=== PATIENT | female | born 1945 | race Caucasian/White ===

== ENCOUNTER 2019-08-22 00:13 | Inpatient (IN) | payer OTHER ==
[~2019-08-22] VITALS: Ht 157.4 cm; Wt 77.3 kg
[2019-08-22] VITALS (26 sets, daily range): BP systolic 76–121; BP diastolic 32–50
--- NOTE | 2019-08-22 00:15 | NUR ---
Pt was placed on a carescape ventilator with trach suction inline and HME. Pt is a 6.0 Shiley. Clean dressing. Pt placed in inital vent settings from EMT of [id number] SpO2 96%
--- NOTE | 2019-08-22 00:20 | NUR ---
Pt has shiley number [address]Pt placed on ac rate of 16,tv of 400 , peep of 5 and fio2 of 40 percent.
--- NOTE | 2019-08-22 00:20 | NUR ---
Pt arrived with trach. kong , left ac midline and peg tube which is clamped.
--- NOTE | 2019-08-22 00:30 | NUR ---
Trace edema noted to b/l legs.
--- NOTE | 2019-08-22 00:35 | NUR ---
in to see pt.Aware of tylenlol given at 2250. Ok to [address] ice packs under pt and recheck temperature later on.
--- NOTE | 2019-08-22 01:00 | NUR ---
Pt turned and ice bags placed at this time.
[2019-08-22 01:09] LABS: HEMATOCRIT 24.8 % (37.0-47.0); MEAN CELL VOLUME 100.8 fl (81.0-99.0); MEAN CORPUSCULAR HGB 31.3 pg (27.0-31.0); MEAN PLATELET VOLUME 10.1 fl (9.6-12.3); PLATELET COUNT AUTOMATED 370 10*3/uL (130-400); RED BLOOD COUNT 2.46 10*6/uL (4.10-5.10); RED CELL DISTRI WIDTH 15.2 % (0-14.5); WHITE BLOOD COUNT 29.1 10*3/uL (4.8-10.8)
--- NOTE | 2019-08-22 01:10 | NUR ---
Pt has [address]Pt placed on vent with settings of ac 16 , peep of 5, brian of 40 and tv of 400 at this time.
[2019-08-22 01:22] LABS: ACT PARTIAL THROMBO TIME 26.1 SECONDS (20.0-32.1); INTERNATIONAL NORM RATIO 1.1 (2.0-3.5)
[2019-08-22 01:27] LABS: ALBUMIN 1.9 gm/dl (3.1-4.5); ALKALINE PHOSPHATASE 70 U/L (45-117); BUN 35 mg/dl (7-24); CHLORIDE 97 mmol/L (98-107); CREATININE 0.68 mg/dL (0.55-1.02); PLATELET SUFFICIENCY NORMAL (NORMAL); POLYCHROMASIA SLIGHT; POTASSIUM 5.8 mmol/L (3.5-5.1); SGOT/AST 26 IU/L (3-35); SGPT/ALT 32 U/L (12-78); SODIUM 136 mmol/L (136-145); TOTAL CELLS COUNTED 100 #CELLS; TOTAL PROTEIN 5.4 gm/dL (6.4-8.2)
[2019-08-22 01:29] LABS: TROPONIN I 0.359 ng/ml (<0.045)
[2019-08-22 01:53] LABS: BILIRUBIN NEGATIVE (NEGATIVE); BLOOD 1+ (NEGATIVE); CLARITY SL CLOUDY (CLEAR); COLOR YELLOW (YELLOW); GLUCOSE NEGATIVE (NEGATIVE); KETONE NEGATIVE (NEGATIVE); SPECIFIC GRAVITY 1.025 (1.005-1.030)
[2019-08-22 01:54] LABS: BACTERIA 1+; EPITHELIAL CELLS TNTC; LEUKO ESTERASE TRACE (NEGATIVE); NITRITE NEGATIVE (NEGATIVE); UROBILINOGEN 0.2 E.U./dl (0.2-1.0)
--- NOTE | 2019-08-22 02:40 | NUR ---
aware of pt with marginal blood pressure at this time.Also aware of louis clek unable to find records on pt at this time.
--- NOTE | 2019-08-22 02:41 | NUR ---
Pt has mutiple wounds noted.Pt has one on right lower leg and left lower leg which had dressings prior to being here.Area is black and pink.Area on left and right buttock at this time with dressings prior.Area is black and dark pink.Area also noted on sacrum with dressing and pink and black.Md aware and photos taken.
--- NOTE | 2019-08-22 03:00 | NUR ---
Anitbiotics not started at this time and waiting on records from [facility].
--- NOTE | 2019-08-22 03:17 | NUR ---
Spoke with .Orders to call Keith Driver at this time.
--- NOTE | 2019-08-22 03:20 | NUR ---
[facility] ([place], [place]) stated pt did not have any antibiotic since 1 pm and stated they would fax over information.They are aware [facility] has no info on this pt.
--- NOTE | 2019-08-22 03:30 | NUR ---
Antibiotcs not started at this time and waiting on records from [facility]. aware of this.
--- NOTE | 2019-08-22 03:45 | NUR ---
RECEIVED PT FROM JOSÉ MIGUEL FINE WHO STATES WAITING TO START ANTIBIOTICS UNTIL "RECORDS RECIEVED FROM FACILITY". CLARIFIED THIS WITH DR SOLORZANO WHO STATES OK TO START ANTIBIOTICS STAT.
--- NOTE | 2019-08-22 03:49 | NUR ---
Transfer of care to Marissa romero.
--- NOTE | 2019-08-22 04:21 | NUR ---
DR SOLORZANO STATES TO GIVE ANTIBIOTICS FIRST AND THEN ADMINISTER BLOOD WHEN ANTIBIOTICS ARE DONE DUE TO PT ONLY HAVING ONE PERIPHERAL LINE.
--- NOTE | 2019-08-22 04:26 | NUR ---
SPOKE WITH SHAHRAM AT [facility] ([facility]) WHO REPORTS SHE DOES NOT HAVE A COPY OF PT DNRCC ORDER AVAILABLE. STATES ORDER IS IN THEIR ELECTRONIC SYSTEM BUT HAS NO COPY OF SIGNED ORDER.
--- NOTE | 2019-08-22 04:30 | NUR ---
DR SOLORZANO TO CANCEL [facility]
--- NOTE | 2019-08-22 04:48 | NUR ---
VERBAL ORDER FROM DR SOLORZANO TO RUN BLOOD AT HIGH RATE IF TOLERATED TO INCREASE BP AND FINISH TO START ANOTHER ANTIBIOTIC D/T LIMITIED PERIPHERAL ACCESS . WILL MONITOR PT CLOSELY THROUGHOUT TRANSFUSION.
--- NOTE | 2019-08-22 04:50 | NUR ---
BLOOD CONSENT NOT SIGNED D/T PT AMS, PT UNABLE TO GIVE CONSENT AT THIS TIME. BLOOD CHECKED WITH JOSÉ MIGUEL JOAQUIN PRIOR TO ADMINISTRATION.
--- NOTE | 2019-08-22 05:00 | NUR ---
PT PLACED ON COOLING MACHINE PER DR ORDER. WILL CONTINUE TO MONITOR.
--- NOTE | 2019-08-22 05:18 | NUR ---
CALLED NURSING INGREDIENT [facility] TO GET ANTIBIOTIC MEROPENOM.
--- NOTE | 2019-08-22 05:30 | NUR ---
PER DR SOLORZANO, ADMINISTER ANTIBIOTICS BEFORE MORE BLOOD.
--- NOTE | 2019-08-22 05:30 | NUR ---
FIRST UNIT BLOOD COMPLETE, PT TOLERATED WELL. WILL CONTINUE TO MONITOR.
--- NOTE | 2019-08-22 05:50 | NUR ---
PT GRAND DAUGHTER AMI WEBB CALLS TO CHECK ON PT. STATES SHE IS MEDICAL POA AND CONFIRMS PT IS DNR-CC. DR SOLORZANO MADE AWARE. STATES PT CAN NOT HAVE IBUPROFEN OR BLOOD THINNERS. WISHES TO BE CONTACTED WITH UPDATES AND NEEDED AT [phone].
--- NOTE | 2019-08-22 06:19 | NUR ---
JOSÉ MIGUEL SEXTON STATES READY FOR PATIENT
--- NOTE | 2019-08-22 06:20 | NUR ---
CALLED [facility] FOR PT TRANSPORT TO FLOOR
[2019-08-22 06:45] LABS: LDH 163 U/L (84-246)
[2019-08-22 06:47] LABS: TROPONIN I 0.358 ng/ml (<0.045)
--- NOTE | 2019-08-22 06:55 | NUR ---
A 74yr old female, admitted to [facility], under the services of MARY ANN Marie DO with a diagnosis of COVID-19 (NOT DETECTED), PNEUMONIA, FEVER, QUADRIPLEGIA. Chief complaint is fever at [facility], where she was admitted yesterday. Patient arrived via stretcher from ER. Monitor applied. Initial assessment completed. Vital signs taken and recorded. See assessment for past medical history, medications and allergies. Patient and/or family oriented to unit. [facility]. SOLA SAUCEDO L
[2019-08-22] MEDS ORDERED: ATORVASTATIN CA40 M1 PEG (08:10)
[2019-08-22] MEDS ORDERED: BASAG SOL SC (08:11)
[2019-08-22] MEDS ORDERED: LAXATIVE SUPPOS10 MG R (08:12)
[2019-08-22] MEDS ORDERED: PERIDEX118 ML PO (08:13)
[2019-08-22] MEDS ORDERED: FLEET ENEMA EX230 M1 R (08:13)
[2019-08-22] MEDS ORDERED: FUROSEMIDE40 MG PEG (08:14)
[2019-08-22] MEDS ORDERED: HEPARIN SO5000 UNIT4 SC (08:15)
[2019-08-22] MEDS ORDERED: Synthroid,Levo25 MCG PEG (08:17)
[2019-08-22] MEDS ORDERED: HUMALOG100 UNIT/1 SC (08:17)
[2019-08-22] MEDS ORDERED: LOMOTIL 2.5-0.1 EACH PEG (08:18)
[2019-08-22] MEDS ORDERED: LORAZEPAM I2 MG/1 ML PEG (08:20)
[2019-08-22] MEDS ORDERED: MELATONIN3 M2 PEG (08:21)
[2019-08-22] MEDS ORDERED: VENTOLIN 02.5 MG/3 M INH (08:23)
[2019-08-22] MEDS ORDERED: MERREM IV1 GM IV (08:23)
[2019-08-22] MEDS ORDERED: MIDODRINE HCL10 MG PEG (08:24)
[2019-08-22] MEDS ORDERED: MILK OF MA400 MG/51 PEG (08:25)
[2019-08-22] MEDS ORDERED: NICODERM CQ1 EAC2 TD (08:26)
[2019-08-22] MEDS ORDERED: NITROGLYCERIN0.4 MG SL (08:27)
[2019-08-22] MEDS ORDERED: ONDANSETRON HYDR4 MG PEG (08:28)
[2019-08-22] MEDS ORDERED: OXYCODONE H5 MG/5 ML PEG (08:29)
[2019-08-22] MEDS ORDERED: PROTONIX40 M2 PEG (08:29)
[2019-08-22] MEDS ORDERED: RANITIDINE PEG (08:30)
[2019-08-22] MEDS ORDERED: TRANSDERM-SCOP1 EAC1 T (08:31)
[2019-08-22] MEDS ORDERED: STRESS B WITH1 EACH PEG (08:32)
[2019-08-22] MEDS ORDERED: SEPTDS PEG (08:33)
[2019-08-22] MEDS ORDERED: VENLAFAXINE75 M1 PEG (08:34)
[2019-08-22] MEDS ORDERED: VITAMIN C500 M7 PEG (08:35)
[2019-08-22 08:38] LABS: ABG BASE EXCESS 6.5 mmol/L (-2.0-2.0); ARTERIAL BLOOD GAS PH 7.43 (7.35-7.45)
--- NOTE | 2019-08-22 08:43 | NUR ---
07:00 PT TRANSPORTED TO 4 NE FROM ER WITHOUT INCICENT. PT BAGGED WITH 100% O2. PT PLACED ON VENT UPON ARRIVAL TO [facility]. VENT CHECKED AND FX'ING. PT SUCTIONED FOR MODERATE WHITE SECRETIONS. BBSs WITH RHONCHI BILATERALLY. CLEARER POST SX. GOOD AERATION. TRACH MIDLINE. TRACH TIES AND TRACH MOLINA CHANGED. EKG AND ABG'S TO FOLLOW. RESPS REGULAR AND UNLABORED.
[2019-08-22] MEDS ORDERED: FIBERSOURCE HN250 M3 PEG (09:10)
[2019-08-22 09:51] LABS: BASO % 0.2 % (0.0-1.0); HEMATOCRIT 22.1 % (37.0-47.0); LYMPH # 2.6 10*3/uL (1.3-4.4); LYMPH % 20.2 % (27.0-41.0); MEAN CELL VOLUME 99.1 fl (81.0-99.0); MEAN CORPUSCULAR HGB 30.9 pg (27.0-31.0); MEAN CORPUSCULAR HGB CONC 31.2 g/dl (33.0-37.0); MEAN PLATELET VOLUME 10.7 fl (9.6-12.3); MONO % 7.4 % (3.0-9.0); NEUT # 9.2 10*3/uL (2.3-7.9); RED BLOOD COUNT 2.23 10*6/uL (4.10-5.10); RED CELL DISTRI WIDTH 15.9 % (0-14.5)
--- NOTE | 2019-08-22 09:59 | NUR ---
DR QUIGLEY NOTIFIED OF NEED FOR WOUND CARE ORDERS.
[2019-08-22 10:01] LABS: CHLORIDE 102 mmol/L (98-107); CREATININE 0.68 mg/dL (0.55-1.02); SODIUM 137 mmol/L (136-145)
[2019-08-22 10:03] LABS: BUN 67 mg/dl (7-24)
--- NOTE | 2019-08-22 10:08 | NUR ---
DR ORNELAS NOTIFIED OF CONSULTATION. NO NEW ORDERS.
--- NOTE | 2019-08-22 10:10 | NUR ---
[facility]SWER[facility] NOTIFIED OF CONSULTATION.
--- NOTE | 2019-08-22 10:15 | NUR ---
DR QUIGLEY NOTIFIED OF CRITICAL VALUE TROPONIN 0.321 WHICH IS LOWER THAN THE LAST VALUE.
[2019-08-22 10:16] LABS: PLATELET COUNT AUTOMATED 258 10*3/uL (130-400)
[2019-08-22 10:22] LABS: BASOPHILS 1 % (0-1); PLATELET SUFFICIENCY NORMAL (NORMAL); TOTAL CELLS COUNTED 100 #CELLS
--- NOTE | 2019-08-22 10:25 | NUR ---
DR QUIGLEY NOTIFIED OF CRITICAL HGB 6.9.
--- NOTE | 2019-08-22 11:00 | NUR ---
DR COSBY STAGED WOUNDS.
--- NOTE | 2019-08-22 12:36 | NUR ---
PHONE CONSENT FROM PT'S GRANDDAUGHTER FOR TRANSFUSION OF PACKED CELLS.
--- NOTE | 2019-08-22 12:55 | NUR ---
Phone consent for blood transfusion had been obtained earlier from patient's grand-daughter Dimas. Patient had a unit of blood transfused in ER overnight but I did not locate a consent in her chart anywhere. Patient identified by arm band. Vital signs recorded. Blood unit number [id number] verified by 2 R.N.'s, myself and Daniela Schumacher. I.V. site satisfactory. Unit #2 started at a KVO rate with Normal Saline. SOLA SAUCEDO L
--- NOTE | 2019-08-22 13:02 | NUR ---
Spoke with Omkar Abdullahi in lab, states he is unable to get a hold of the nurses on 4NE and needs to rely a critical for this pt. States these time sensitive and he needs to make someone aware. States troponin is 0.325. I attempted to call staff on 4ne and spoke with najma olson who states there aren't any nurses in site and they must be in pt room. I notified Julia Alex nursing home energy consultant supervisor of critical result and she states that troponin was higher prior to this draw and to notify RN on 4ne when they are available.
--- NOTE | 2019-08-22 13:09 | NUR ---
DR. QUIGLEY NOTIFIED OF TROPONIN RESULT.
--- NOTE | 2019-08-22 13:37 | NUR ---
AT NOON PT HAD BEEN INCONTINENT OF LARGE AMOUNT SEMI FORMED MUSHY LIGHT BROWN BM. AFTER TRANSFUSION INITIATED, I CHECKED TO SEE IF SHE HAD GONE ANYMORE AND FOUND A LARGE DRK PURPLE/RED MELANOTIC STOOL. COMPLETE BED CHANGE AND SIDRA CARE DONE. DR COSBY NOTIFIED OF THIS FINDING. PATIENT WAS IN CONSTANT ATTENDANCE FOR FIRST 20ML OF TRANSFUSION WITH NO APPARENT REACTION AND THE INFUSION RATE WAS INCREASED TO 200/HR. PATIENT DID MOUTH THE WORD "NO" WHEN ASKED IF HER PILLOW COMFORTABLE AND "YES" WHEN OFFERED A SOFTER PILLOW.
--- NOTE | 2019-08-22 13:48 | NUR ---
DR COSBY AND DR QUIGLEY HAVE DISCUSSED CONDITION VIA PHONE WITH FAMILY. DR QUIGLEY CALLED AND SAID THEY WILL BE ENTERING ORDERS FOR HOSPICE ON THIS PT. TRANSFUSION CONTINUES WITHOUT SIGNS OF REACTION.
--- NOTE | 2019-08-22 14:01 | NUR ---
[facility] CALLED TO ASK IF THEY COULD CONSULT ON PATIENT. THE SAS ANALYST THERE TALKING VIA PHONE WITH DR OCSBY.
--- NOTE | 2019-08-22 14:15 | NUR ---
[facility] UNABLE TO CONSULT ON A PATIENT ON VENTILATOR, UNLESS A TERMINAL WEAN HAS ALREADY BEEN PLANNED/HAS OCCURRED AND PT STILL BREATHING. DR COSBY SAYS TO MAINTAIN DNR COMFORT CARE STATUS AND KEEP PT COMFORTABLE. HE WILL DISCUSS WITH FAMILY.
--- NOTE | 2019-08-22 15:50 | NUR ---
DR ORNELAS HAS VISITED. TRANSFUSION CONTINUES. PT ABLE TO MOUTH YES AND NO THAT SHE'S WARM ENOUGH, NOT HAVING ANY PAIN AND DIDN'T WANT THE TV ON.
--- NOTE | 2019-08-22 15:53 | NUR ---
PT'S SON CALLED IN, MADE AWARE OF LOWER GI BLEED, BLOOD TRANSFUSION.
--- NOTE | 2019-08-22 16:10 | NUR ---
TRANSFUSION COMPLETE AT 1610 WITHOUT REACTION.
--- NOTE | 2019-08-22 18:15 | NUR ---
I PHONED DR QUIGLEY TO ASK WHEN HE WANTED ANOTHER CBC AFTER THE TRANSFUSION. ORDER RECEIVED FOR 3 HOURS POST TRANSFUSION.
--- NOTE | 2019-08-22 18:56 | NUR ---
RESTING QUIETLY AT THIS TIME. NO DYSRHYTHMIAS.
--- NOTE | 2019-08-22 20:14 | NUR ---
PATIENT IS AWAKE AND ALERT, MOUTHING WORDS AND RESPONDS TO YES/NO QUESTIONS WITH HEAD NODS. ASSESSMENT IS COMPLETE WITH NO S/S OF DISTRESS NOTED AT THIS TIME. BED IS LOW, LOCKED, ALARMED, AND CALL LIGHT IS WITHIN REACH. SEE INTERVENTIONS.
[2019-08-22 20:21] LABS: BASO % 0.1 % (0.0-1.0); NEUT % 68.8 % (47.0-73.0)
[2019-08-22 20:32] LABS: HEMATOCRIT 22.3 % (37.0-47.0); LYMPH % 21.9 % (27.0-41.0); MEAN CELL VOLUME 92.5 fl (81.0-99.0); MEAN CORPUSCULAR HGB 30.7 pg (27.0-31.0); MEAN CORPUSCULAR HGB CONC 33.2 g/dl (33.0-37.0); MEAN PLATELET VOLUME 10.6 fl (9.6-12.3); MONO # 1.1 10*3/uL (0.1-1.0); MONO % 7.8 % (3.0-9.0); NEUT # 9.5 10*3/uL (2.3-7.9); PLATELET COUNT AUTOMATED 280 10*3/uL (130-400); RED BLOOD COUNT 2.41 10*6/uL (4.10-5.10); RED CELL DISTRI WIDTH 16.1 % (0-14.5); WHITE BLOOD COUNT 13.8 10*3/uL (4.8-10.8)
--- NOTE | 2019-08-22 21:52 | NUR ---
CALLED [facility] WITH HEMOGLOBIN OF 7.4 NO NEW ORDERS WILL RECHECK IN THE MORNING
[2019-08-23] VITALS (12 sets, daily range): BP systolic 95–119; BP diastolic 35–46
--- NOTE | 2019-08-23 01:54 | NUR ---
PATIENT REFUSING TO TURN AT THIS TIME.
--- NOTE | 2019-08-23 01:59 | NUR ---
CHART CHECK COMPLETE.
--- NOTE | 2019-08-23 04:54 | NUR ---
PRN OXY AND ATIVAN GIVEN FOR INCREASED AGITATION, PATIENT VERY TEARFUL, MOUTHING WORDS. INCONTINENCE CARE PROVIDED FOR LARGE LOOSE BLACK BM. BED IS LOW, LOCKED, AND CALL LIGHT IS WITHIN REACH.
[2019-08-23 05:04] LABS: BASO % 0.2 % (0.0-1.0); EOS % 0.1 % (1.0-4.0); HEMATOCRIT 22.3 % (37.0-47.0); LYMPH # 2.6 10*3/uL (1.3-4.4); LYMPH % 20.1 % (27.0-41.0); MEAN CELL VOLUME 93.7 fl (81.0-99.0); MEAN CORPUSCULAR HGB 31.1 pg (27.0-31.0); MEAN CORPUSCULAR HGB CONC 33.2 g/dl (33.0-37.0); MEAN PLATELET VOLUME 10.6 fl (9.6-12.3); MONO % 7.5 % (3.0-9.0); NEUT # 9.3 10*3/uL (2.3-7.9); NEUT % 70.8 % (47.0-73.0); PLATELET COUNT AUTOMATED 280 10*3/uL (130-400); RED BLOOD COUNT 2.38 10*6/uL (4.10-5.10); RED CELL DISTRI WIDTH 16.6 % (0-14.5); WHITE BLOOD COUNT 13.1 10*3/uL (4.8-10.8)
[2019-08-23 05:19] LABS: ALBUMIN 1.9 gm/dl (3.1-4.5); CHLORIDE 104 mmol/L (98-107); CPK 59 U/L (26-192); CREATININE 0.68 mg/dL (0.55-1.02); POTASSIUM 4.3 mmol/L (3.5-5.1); SGOT/AST 13 IU/L (3-35); SGPT/ALT 27 U/L (12-78); SODIUM 138 mmol/L (136-145); TOTAL PROTEIN 4.9 gm/dL (6.4-8.2)
[2019-08-23 05:25] LABS: BUN 81 mg/dl (7-24)
[2019-08-23 05:46] LABS: ALKALINE PHOSPHATASE 17 U/L (45-117)
--- NOTE | 2019-08-23 05:54 | NUR ---
GLUCOSE 342 ACCORDING TO AM LABS.
--- NOTE | 2019-08-23 07:05 | NUR ---
Shift chart check completed.24 HR chart check completed.
--- NOTE | 2019-08-23 07:25 | NUR ---
DR QUIGLEY NOTIFIED OF LACTIC ACID BASELINE OF 2.3.
[2019-08-23 07:43] LABS: ABG BASE EXCESS 2.6 mmol/L (-2.0-2.0); ARTERIAL BLOOD GAS PH 7.421 (7.35-7.45)
--- NOTE | 2019-08-23 09:00 | NUR ---
DURING BATH FOUND A CLEAR TEGADERM OVER THE RIGHT ELBOW THAT I DID NOT SEE YESTERDAY, NEAR THE BP CUFF. WILL ASK THE NIGHT NURSE WHEN SHE IS BACK TONIGHT TO SEE IF SHE PLACED IT THERE OR IF I MISSED IT YESTERDAY.
--- NOTE | 2019-08-23 09:02 | NUR ---
ON ASSESSMENT PATIENT IS ALERT, MOUTHED "GOOD MORNING" IN RESPONSE TO ME. REMAINS VENTED, VIA TRACH. INCONTINENT MODERATE AMT DRK BROWN/BLACK BM. COMPLETE AM CARE DONE WITH RANGE OF MOTION. ANASARCA CONTINUES. TUBI DISPLAYER APPLIED TO BILATERAL LOWER LEGS WITH HEEL RAISER PREVALON BOOTS. PEG INTACT WITH JEVITY 1.2 AT 50/HR WITH NO RESIDUAL. SEE ALL APPROPRIATE INTERVENTIONS.
--- NOTE | 2019-08-23 09:49 | NUR ---
DR QUIGLEY NOTIFIED OF REFLEX LACTIC ACID OF 2.1, LOWER THAN THE LAST VALUE.
--- NOTE | 2019-08-23 12:36 | NUR ---
DR ORNELAS AND ALEA HAVE VISITED. REVIEW OF LABS/ORDERS. ORDERS RECEIVED.
[2019-08-23 14:05] LABS: HEP B CORE AB, IGM Negative (Negative); HEPATITIS B SURFACE AG Negative (Negative); HEPATITIS C AB 0.2 (0.0-0.9); HEPATITIS C VIRUS ANTIBODY 0.2 s/co (0.0-0.9)
--- NOTE | 2019-08-23 14:22 | NUR ---
STAT PORTABLE CXR HAS BEEN DONE.ALBUMIN AND LASIX PER ORDER. BSBS 265 AT 1411, INSULIN DRIP STARTED AT 3 UNITS/HR. INCONTINENT SMALL DARK TARRY STOOL. PT GRIMACING AND TEARFUL. DENIES PAIN. MOUTH "YES" WHEN I ASKED IF SHE WAS SCARED. WILL ADMINISTER PRN DOSE OF ATIVAN.
--- NOTE | 2019-08-23 14:27 | NUR ---
ATIVAN VIA PEG FOR ANXIETY.
--- NOTE | 2019-08-23 15:26 | NUR ---
PT RESTING WITH HER EYES CLOSED, FACE RELAXED SINCE EARLIER ATIVAN.
--- NOTE | 2019-08-23 16:06 | NUR ---
INSULIN DRIP TITRATED TO 4 UNITS/HR FOR BSBS 276.
--- NOTE | 2019-08-23 16:38 | NUR ---
DR ORNELAS CALLED IN, HE'S REVIEWED CXR,AND LABS. ORDERS RECEIVED.
--- NOTE | 2019-08-23 17:12 | NUR ---
INSULIN DRIP INCREASED TO 5 UNITS/HR FOR BSBS OF 243. PT HAS HAD SMALL TARRY BM'S WITH EVERY POSITION CHANGE.
--- NOTE | 2019-08-23 18:02 | NUR ---
INSULIN DRIP INCREASED TO 6UNITS/HR FOR BSBS OF 244.
[2019-08-23 18:22] LABS: BUN 73 mg/dl (7-24); CHLORIDE 106 mmol/L (98-107); CREATININE 0.64 mg/dL (0.55-1.02); POTASSIUM 3.9 mmol/L (3.5-5.1); SODIUM 140 mmol/L (136-145)
--- NOTE | 2019-08-23 19:01 | NUR ---
DR ORNELAS NOTIFIED OF 6PM BMP. ORDERS RECEIVED.
--- NOTE | 2019-08-23 19:09 | NUR ---
INSULIN DRIP TO 7UNITS/HR FOR BSBS OF 245. TRANSFUSION CONTINUES WITHOUT SIGNS OF REACTION.
--- NOTE | 2019-08-23 19:29 | NUR ---
NIGHT NURSE DID NOT PLACE OPSITE ON RT ELBOW LAST NIGHT. PHOTO AND MEASUREMENTS TAKEN.
--- NOTE | 2019-08-23 19:30 | NUR ---
DR ROBERTSON NOTIFIED OF SKIN ISSUE OF RT ELBOW AND ORDERS RECEIVED.
--- NOTE | 2019-08-23 20:00 | NUR ---
PT RESTING IN BED AWAKE & ALERT. TRACH PATENT, TIES SECURE, VENT SETTINGS VERIFIED AND FUNCTIONING WITHOUT DIFFICULTY. PEG TUBE PATENT, PLACEMENT VERIFIED VIA AIR BOLUS, TF PEDRO WELL. LEFT MIDLINE AND RIGHT ACCUCATH PATENT, DRESSINGS DRY AND INTACT. IVF'S INFUSING ORDERED WITHOUT DIFFICULTY. MCKENNA PATENT FOR CLEAR STRAW URINE. NO ACUTE DISTRESS OR DISCOMFORT NOTED. NO S/S OF HYPO/HYPERGLYCEMIA NOTED.
--- NOTE | 2019-08-23 20:30 | NUR ---
BLOOD INFUSION DONEL. UNABLE TO CHART I&O'S FOR BLOOD IN BLOOD TAR.
--- NOTE | 2019-08-23 21:04 | NUR ---
MEDICATED WITH ATIVAN AND OXYCODONE PER PRN ORDERS FOR ANXIETY AND PAIN.
--- NOTE | 2019-08-23 21:30 | NUR ---
ATIVAN AND OXYCODONE EFFECTIVE.
[2019-08-24] VITALS: BP 129/39
[2019-08-24 04:00] VITALS: BP 113/39
--- NOTE | 2019-08-24 04:26 | NUR ---
MEDICATED WITH ATIVAN AND ONYCODONE PER PRN ORDERS FOR PAIN AND ANXIETY.
[2019-08-24 06:32] LABS: BASO % 0.2 % (0.0-1.0); EOS # 0.1 10*3/uL (0.0-0.4); EOS % 0.8 % (1.0-4.0); HEMATOCRIT 23.2 % (37.0-47.0); LYMPH # 2.9 10*3/uL (1.3-4.4); LYMPH % 18.4 % (27.0-41.0); MEAN CELL VOLUME 93.2 fl (81.0-99.0); MEAN CORPUSCULAR HGB 29.7 pg (27.0-31.0); MEAN CORPUSCULAR HGB CONC 31.9 g/dl (33.0-37.0); MEAN PLATELET VOLUME 10.8 fl (9.6-12.3); MONO % 6.2 % (3.0-9.0); NEUT # 11.4 10*3/uL (2.3-7.9); NEUT % 72.6 % (47.0-73.0); PLATELET COUNT AUTOMATED 244 10*3/uL (130-400); RED BLOOD COUNT 2.49 10*6/uL (4.10-5.10); RED CELL DISTRI WIDTH 18.3 % (0-14.5); WHITE BLOOD COUNT 15.8 10*3/uL (4.8-10.8)
[2019-08-24 07:04] LABS: ALBUMIN 2.3 gm/dl (3.1-4.5); CHLORIDE 107 mmol/L (98-107); CREATININE 0.52 mg/dL (0.55-1.02); POTASSIUM 3.9 mmol/L (3.5-5.1); SGOT/AST 27 IU/L (3-35); SGPT/ALT 38 U/L (12-78); SODIUM 142 mmol/L (136-145)
[2019-08-24 07:13] LABS: ALKALINE PHOSPHATASE 51 U/L (45-117)
[2019-08-24 07:15] LABS: BUN 63 mg/dl (7-24)
[2019-08-24 08:00] VITALS: BP 113/57
[2019-08-24 08:29] LABS: ABG BASE EXCESS 5.1 mmol/L (-2.0-2.0); ARTERIAL BLOOD GAS PH 7.38 (7.35-7.45)
--- NOTE | 2019-08-24 09:00 | NUR ---
AM ASSESSMENT DONE - PT ALERT & SPEAKS TO NURSES..PT MOVES HEAD BUT UNABLE TO MOVE ANY OTHER EXTREMITY. TRACH SECURE & SUCTIONED BY RESP THERAPY FOR SM THICK YELLOW..DIM BILAT.. LEFT MIDLINE PATENT & FLUSHED. RT ACCUCATH PATENT W/ INSULIN DRIP INFUSING & DECREASED TO 4 UNITS/HR.. PEG TUBE SECURE WITH JEVITY INFUSING..MCKENNA PATENT FOR STRAW URINE..AFEBRILE VIA RECTAL PROBE. TARRY BLACK STOOL...DRESSING TO COCCYX & RT ELBOW CHANGED. GEN 3RD SPACING EDEMA TO ALL EXTREMITIES..
[2019-08-24 10:57] LABS: ABG BASE EXCESS 5.4 mmol/L (-2.0-2.0); ARTERIAL BLOOD GAS PH 7.404 (7.35-7.45)
[2019-08-24 12:00] VITALS: BP 109/46
--- NOTE | 2019-08-24 14:05 | NUR ---
REPOSITIONED - ANASARCA ALL EXTREMITIES & ABDOMEN. SCD, TUBIGRIPS & HEEL RAISERS REMAIN IN USE. ALBUMIN & LASIX GIVEN PER ORDERS..INSULIN DRIP STOPPED PER ORDERS AND LONG ACTING INSULIN STARTED
--- NOTE | 2019-08-24 14:43 | NUR ---
TRANSFERRED TO ICU 3 VIA BED
--- NOTE | 2019-08-24 14:59 | NUR ---
MOVED TO ICU WITH REPORT..
--- NOTE | 2019-08-24 15:04 | NUR ---
AMI WEBB AWARE OF TRANSFER TO ICU 3
--- NOTE | 2019-08-24 15:45 | NUR ---
RESTING IN BED. MOUTHS "NO" WHEN ASKED TO TURN PATIENT. #6 SHILEY TRACH INTACT AND SUCTIONED FOR SCANT CLEAR SECRETIONS. PEG TUBE INTACT AND JEVITY INFUSING AT 60CC/HR. SCD'S AND PRAFO BOOTS INTACT TO BILATERAL LOWER LEGS. MCKENNA INTACT AND DRAINING CLEAR YELLOW URINE. ORAL CARE PROVIDED.
[2019-08-24 16:00] VITALS: BP 119/34
--- NOTE | 2019-08-24 18:32 | NUR ---
MEDICATED WITH ATIVAN VIA PEG TUBE FOR COMPLAINTS OF ANXIETY. LIPS "I CANNOT BREATHE." WHEN ASKED IF VITA IS NERVOUS, SHE NODS YES." PULSE OX 97% ON VENT
[2019-08-24 20:00] VITALS: BP 127/35
--- NOTE | 2019-08-24 21:15 | NUR ---
PT. RESTING IN BED. STATES "HELP ME" "I CANT BREATH", REASSURED PATIENT PULSE OX 96% ON 30% FIO2. ORAL MOUTH CARE GIVEN AND PT. SUCTIONED VIA TRACH AND ORALLY FOR MODERATE AMT OF YELLOW/WHITE AND ORAL SECRETIONS RESPECTIVELY. JEVITY TUBE FEEDING VIA PEG CONTINUES ORDERED, NO RESIDUAL NOTED. LUNGS DIMINISHED BILAT. ABDOMEN SOFT ,NONDISTENDED AND NORMO. DEPENDENT EDEMA OF HANDS/FEET AND GENERALIZED ANASARCA NOTED. BOOTS AND SCD'S ON BILAT. MCKENNA CATHETER DRAINING A MODERATE AMT OF CLEAR YELLOW URINE DUE TO LASIX/ALBUMIN. MIDLINE AND ACCUCATH'S INTACT IN BILAT ARMS. RESP EASY AND REG NO DISTRESS. PT. ANXIOUS AT TIMES. MEDICATED PRIOR TO SHIFT WITH ATIVAN ORDERED. DEMETRIA SIMMONS RN
[2019-08-25] VITALS: BP 142/38
--- NOTE | 2019-08-25 01:12 | NUR ---
ATIVAN GIVEN AT 0020 FOR ANXIETY PT. KEPT STATING "HELP ME" AND "i CANT BREATH". CURRENTLY SLEEPING, ATIVAN EFFECTIVE.
--- NOTE | 2019-08-25 03:34 | NUR ---
PT. GIVEN TYLENOL SUPP FOR TEMP OF 101.3 ORDERED. DEMETRIA SIMMONSRN
[2019-08-25 04:00] VITALS: BP 152/52
--- NOTE | 2019-08-25 04:41 | NUR ---
REPEAT TEMP 100.7, TYLENOL EFFECTIVE.
[2019-08-25 04:53] LABS: HEMATOCRIT 23.7 % (37.0-47.0); MEAN CELL VOLUME 94.4 fl (81.0-99.0); MEAN CORPUSCULAR HGB 30.3 pg (27.0-31.0); MEAN CORPUSCULAR HGB CONC 32.1 g/dl (33.0-37.0); MEAN PLATELET VOLUME 10.9 fl (9.6-12.3); NUCLEATED RED BLOOD CELL 0.1 10*3/uL (0.0-0.0); NUCLEATED RED BLOOD CELL 0.4 % (0.0-0.0); PLATELET COUNT AUTOMATED 296 10*3/uL (130-400); RED BLOOD COUNT 2.51 10*6/uL (4.10-5.10); RED CELL DISTRI WIDTH 17.6 % (0-14.5)
[2019-08-25 05:22] LABS: ALKALINE PHOSPHATASE 92 U/L (45-117); CHLORIDE 104 mmol/L (98-107); CREATININE 0.53 mg/dL (0.55-1.02); POTASSIUM 4.3 mmol/L (3.5-5.1); SGOT/AST 41 IU/L (3-35); SGPT/ALT 53 U/L (12-78); SODIUM 140 mmol/L (136-145); TOTAL PROTEIN 5.7 gm/dL (6.4-8.2)
[2019-08-25 05:24] LABS: PLATELET SUFFICIENCY NORMAL (NORMAL); TOTAL CELLS COUNTED 100 #CELLS
[2019-08-25 05:25] LABS: BURR CELLS FEW; OVALOCYTES FEW
[2019-08-25 05:45] LABS: BUN 46 mg/dl (7-24)
--- NOTE | 2019-08-25 07:36 | NUR ---
IOANA WEBB [id number] Please refer to the physician's history and physical for past medical history, comorbid conditions, and allergies. Diagnosis: COVID-19 VIRUS NOT DETECTED FEVER QUADRIPLEGIA Greg Score: 10,HIGH RISK WOUND DESCRIPTIONS: This nurse was assessed with Alecia Vogel RN. Wound Number: 1 Location of the wound: left buttock Type of Wound: Unstageable Thickness: Full Size: 3.0cm x 3.3cm x 0.1cm Tunneling: none Undermining: none Sinus Tract: none Presence of Exudate: Serousanguineous Amount: Light Color: Red, yellow, black Odor: None Periwound Skin Appearance: Normal Wound edges: approximated Pain (associated with wound): none at time of assessment How does patient state this happened? pt unable to state how this happened Wound Number: 2 Location of the wound: left lower leg Thickness: Full Size: 6.7cm x 1.4cm x 0.1cm Tunneling: none Undermining: none Sinus Tract: none Presence of Exudate: Serosanguineous Amount: Light Color: Red, yellow Odor: None Periwound Skin Appearance: Normal Wound edges: approximated Pain (associated with wound): none at time of assessment How does patient state this happened? pt unable to state how this happened Wound Number: 3 Location of the wound: sacrum Type of wound: unstageable Thickness: Full Size: 5.0cm x 3.2cm x 0.1cm Tunneling: none Undermining: none Sinus Tract: none Presence of Exudate: Serousanguineous Amount: Light Color: Red, yellow, black Odor: None Periwound Skin Appearance: Normal Wound edges: approximated Pain (associated with wound): none at time of assessment How does patient state this happened? pt unable to state how this happened Wound Number: 4 Location of the wound: right buttock Type of wound: unstageable Thickness: Full Size: 4.0cm x 4.5cm x 0.1cm Tunneling: none Undermining: none Sinus Tract: none Presence of Exudate: Serosanguineous Amount: Light Color: Red, yellow, black Odor: None Periwound Skin Appearance: Normal Wound edges: approximated Pain (associated with wound): none at time of assessment How does patient state this happened? pt unable to state how this happened Wound Number: 5 Location of the wound: right lower leg Thickness: Full Size: 3.5cm x 1.2cm x 0.1cm Tunneling: none Undermining: none Sinus Tract: none Presence of Exudate: Serousanguineous Amount: Light Color: Red, yellow Odor: None Periwound Skin Appearance: Normal Wound edges: approximated Pain (associated with wound): none at time of assessment How does patient state this happened? pt unable to state how this happened Wound Number: 6 Location of the wound: right elbow Type of wound: skin tear Thickness: Partial Size: 1.3cm x 1.2cm x 0.1cm Tunneling: none Undermining: none Sinus Tract: none Presence of Exudate: Serous Amount: Light Color: Red Odor: None Periwound Skin Appearance: Normal Wound edges: approximated Pain (associated with wound): none at time of assessment How does patient state this happened? pt unable to state how this happened Surface the patient is resting on: Isoflex SKIN PREVENTION RECOMMENDATION: 1. Pressure redistribution support surface as appropriate 2. Elevate heels 3. Remove boots/TEDS every shift and reapply 4. Head of bed 30 degrees as tolerated 5. Assess nutrition and hydration 6. Manage moisture 7. Avoid the use of containment devices while in bed 8. Use absorptive products on surfaces limit layers of linens on bed 9. Turn and reposition every 1-2 hours in bed and every 1 hour in chair as tolerated 10. Weight shifts every 15 minutes while up in chair 11. Offloading with pillows or device to keep heels elevated off bed 12. Monitor skin at least every shift 13. Inspect under medical devices twice a day WOUND TREATMENT RECOMMENDATIONS: Wheelchair cushion when oob Continue to wear bilateral boots provided from home D/C Partial thickness guidelines Continue skin tear guidelines to right elbow Full thickness guidelines: Cleanse left buttocks, right buttocks and sacrum with nss and apply calazime every shift and prn for soiling. Consult Dr. Madden for possible debridement of right buttocks, left buttocks and sacrum. Full thickness guidelines: Cleanse right lower extremity and left lower extremity with nss and apply sureprep around the wound therahoney to wound bed and cover with optifoam gentle every 2 days and prn for soiling. Consult podiatry for possible for debridement if studies allow. Venous and arterial studies to bilateral lower extremities due to non healing wound.
--- NOTE | 2019-08-25 07:37 | NUR ---
Shift chart check completed.
[2019-08-25 08:00] VITALS: BP 150/60
--- NOTE | 2019-08-25 08:00 | NUR ---
Heavy Equipment Plumbing Supervisor in to see patient. She is short term at [facility] and plans to return there upon discharge. distillery worker general following.
--- NOTE | 2019-08-25 08:26 | NUR ---
ATIVAN VIA PEG FOR CRYING.
--- NOTE | 2019-08-25 08:35 | NUR ---
Patient comes [facility]
--- NOTE | 2019-08-25 09:28 | NUR ---
EARLIER ATIVAN MINIMALLY EFFECTIVE.
--- NOTE | 2019-08-25 09:45 | NUR ---
SPEECH PATHOLOGY Nursing screen complete. Patient has a trach and is PEG tube fed. Speech services are not warranted at this time however this dept. will remain available if future needs rise. VALE ANNE MSCCC-COMMISSIONED SALES ASSOCIATE
--- NOTE | 2019-08-25 10:00 | NUR ---
FIO2 DECREASED TO 25% PER DR. ORNELAS.
--- NOTE | 2019-08-25 10:59 | NUR ---
ON ASSESSMENT THIS AM PATIENT ALERT, MOUTHED "GOOD MORNING" TO ME. SHE APPEARS ANXIOUS AT ALL TIMES. WOUND CARE NURSES HAVE VISITED. TUBE FEEDINGS CONTINUE AT 60/HR. RHONDA ORNELAS, ALEA AND EDGARD HAVE ALL VISITED. FIO2 HAS BEEN TITRATED TO 25% AND SHE'S BEEN MAINTAINING PULSE OX >92%. LESS EDEMATOUS THAN SATURDAY. SEE ALL PERTINENT INTERVENTIONS.
--- NOTE | 2019-08-25 10:59 | NUR ---
Dr. Saab notified of wound care recommendations.
[2019-08-25 12:00] VITALS: BP 157/43
--- NOTE | 2019-08-25 13:56 | NUR ---
HAS BEEN ACCOMPANIED TO AND FROM RADIOLOGY FOR CT SCAN OF NECK.
--- NOTE | 2019-08-25 14:27 | NUR ---
DR CHILDRESS'S OFFICE NOTIFIED OF CONSULTATION.
--- NOTE | 2019-08-25 14:35 | NUR ---
DR WEAVER, PODIATRY RESIDENT, NOTIFIED OF CONSULT AND HE'S HERE TO SEE THE PATIENT NOW.
--- NOTE | 2019-08-25 14:54 | NUR ---
DR CHILDRESS HAS BEEN IN TO SEE PATIENT.
--- NOTE | 2019-08-25 15:04 | NUR ---
RADIOLOGY HERE FOR LOWER EXTREMITY ULTRASOUNDS BILATERALLY. DR WEAVER FROM PODIATRY OBTAINED CULTURE FROM BOTH LOWER LEGS.
--- NOTE | 2019-08-25 15:32 | NUR ---
TOOK A CALL FROM DR LEE AT [facility] RECOMMENDING AN MRI OR, IF POSSIBLE, IF HE COULD SOMEHOW HAVE HER PREVIOUS FILMS TO COMPARE. DR ROGERS NOTIFIED OF THIS.
[2019-08-25 16:00] VITALS: BP 160/62
--- NOTE | 2019-08-25 17:11 | NUR ---
DR ROGERS SPOKE WITH DR RENE ABOUT POSSIBLE NEED TO TRANSFER BACK TO WHERE HER SURGERY WAS PERFORMED. DR ROGERS SPOKE WITH NATALIE MUELELR AND THEY WANT PALLIATIVE CARE ONLY. COMPLETE BED BATH, DONE. INCONTINENT SARINA RIOS LIQUID BM. MCKENNA CATHETER CHANGED PER ORDER.
[2019-08-25 17:49] LABS: BILIRUBIN NEGATIVE (NEGATIVE); BLOOD 2+ (NEGATIVE); CLARITY SL CLOUDY (CLEAR); COLOR YELLOW (YELLOW); GLUCOSE NEGATIVE (NEGATIVE); KETONE NEGATIVE (NEGATIVE); SPECIFIC GRAVITY 1.005 (1.005-1.030); UROBILINOGEN 0.2 E.U./dl (0.2-1.0)
[2019-08-25 17:50] LABS: BACTERIA 1+; LEUKO ESTERASE 1+ (NEGATIVE); NITRITE NEGATIVE (NEGATIVE); RBC 21-30 rbc/hpf (0-2)
--- NOTE | 2019-08-25 18:00 | NUR ---
PALLIATIVE CARE CONSULT CALLED TO THE PALLIATIVE CARE ANSWERING SERVICE.
[2019-08-25 20:00] VITALS: BP 148/53
--- NOTE | 2019-08-25 20:32 | NUR ---
PT. RESTING IN BED. ANSWERS QUESTIONS APPRORIATELY. JEVITY TF CONTNUES WITH NO RESIDUAL NOTED. LUNGS DIMINISHED BILAT, PULSE OX 92% ON 25% FIO2. ABDOMEN SOFT, NONDISTENDED AND NORMO. DEPENDENT EDEMA OF HANDS, LOWER LEGS/FEET, RIGHT ARM. MCKENNA DRAINING A CLEAR YELLOW URINE. PT. GIVEN ORAL MOUTH CARE AND SUCTIONED FOR MODERATE AMT OF WHITE/YELLOW AND CLEAR MUCOUS RESPECTIVELY. REPOSITIONED FOR COMFORT. DEMETRIA SIMMONS RN
--- NOTE | 2019-08-25 22:17 | NUR ---
PT. GIVEN ATIVAN AT 2105 FOR ANXIETY. CURRENTLY RESTING QUIETLY, ATIVAN EFFECTIVE.
[2019-08-26] VITALS: BP 154/54
--- NOTE | 2019-08-26 03:45 | NUR ---
Upon discharge recommend patient to follow up for wound care in outpatient setting continue current wound care orders at discharging facility.
[2019-08-26 04:00] VITALS: BP 161/52
[2019-08-26 04:33] LABS: HEMATOCRIT 24.6 % (37.0-47.0); MEAN CELL VOLUME 95.7 fl (81.0-99.0); MEAN CORPUSCULAR HGB CONC 31.3 g/dl (33.0-37.0); MEAN PLATELET VOLUME 10.7 fl (9.6-12.3); NUCLEATED RED BLOOD CELL 0.1 10*3/uL (0.0-0.0); NUCLEATED RED BLOOD CELL 0.3 % (0.0-0.0); PLATELET COUNT AUTOMATED 310 10*3/uL (130-400); RED BLOOD COUNT 2.57 10*6/uL (4.10-5.10); RED CELL DISTRI WIDTH 17.2 % (0-14.5); WHITE BLOOD COUNT 15.5 10*3/uL (4.8-10.8)
[2019-08-26 05:01] LABS: ALBUMIN 3.5 gm/dl (3.1-4.5); ALKALINE PHOSPHATASE 108 U/L (45-117); CHLORIDE 102 mmol/L (98-107); CREATININE 0.53 mg/dL (0.55-1.02); SGOT/AST 39 IU/L (3-35); SGPT/ALT 58 U/L (12-78); SODIUM 139 mmol/L (136-145); TOTAL PROTEIN 6.2 gm/dL (6.4-8.2)
[2019-08-26 05:10] LABS: PLATELET SUFFICIENCY NORMAL (NORMAL); TOTAL CELLS COUNTED 100 #CELLS
[2019-08-26 05:15] LABS: BUN 33 mg/dl (7-24)
--- NOTE | 2019-08-26 07:07 | NUR ---
Faxed palliative care referral to [facility] along with demographics and H&P. Notified [facility] nurse.
--- NOTE | 2019-08-26 07:24 | NUR ---
Shift chart check completed.24 HR chart check completed.
[2019-08-26 08:00] VITALS: BP 159/64
--- NOTE | 2019-08-26 08:48 | NUR ---
ATIVAN VIA PEG FOR ANXIETY.
--- NOTE | 2019-08-26 08:49 | NUR ---
OXY IR 6MG VIA PEG FOR DISCOMFORT FROM TRACH, ETC.
--- NOTE | 2019-08-26 09:00 | NUR ---
[employer] Associate in to see patient. She is short term at [facility] and plans to return there upon discharge. generator worker following.
--- NOTE | 2019-08-26 09:15 | NUR ---
ON ASSESSMENT PATIENT IS ALERT, MOUTHS "GOOD MORNING" TO ME WHEN I SAY GOOD MORNING TO HER. SHE'S GRIMACING AND "SCARED". SHE REMAINS TRACHED AND ON THE VENT. MCKENNA PATENT YELLOW URINE. TUBE FEEDINGS CONTINUE AT 60/HR. SCD'S IN PLACE. SEE ALL APPROPRIATE INTERVENTIONS.
--- NOTE | 2019-08-26 09:49 | NUR ---
OYX IR EFFECTIVE.
--- NOTE | 2019-08-26 10:00 | NUR ---
DR ORNELAS HAS VISITED. SAYS PROBABLY ABLE TO RETURN TO [facility] TOMORROW, DR COSBY NOTIFIED.
[2019-08-26 12:00] VITALS: BP 155/52
--- NOTE | 2019-08-26 12:00 | NUR ---
ATTEMPTED TO HAVE PT FACETIME WITH HER SON BUT UNABLE TO DO SO. I HELD THE PHONE TO HER EAR TO HEAR HIM.
--- NOTE | 2019-08-26 13:40 | NUR ---
PT HAS BEEN REPOSITIONED Q2H AND PRN.
[2019-08-26 16:00] VITALS: BP 157/55
--- NOTE | 2019-08-26 16:31 | NUR ---
TYLENOL SUPPOSITORY FOR TEMP ELEVATION. REPOSITIONED.
--- NOTE | 2019-08-26 18:11 | NUR ---
NEW IV SITE OBTAINED LEFT FOREARM.
--- NOTE | 2019-08-26 18:24 | NUR ---
JAVAN MIDLINE REMOVED INTACT 11CM. CATHETER TIP CUT WITH STERILE SCISSORS, PLACED IN STERILE CUP AND WALKED TO THE LAB.
[2019-08-26 20:00] VITALS: BP 153/49
--- NOTE | 2019-08-26 20:02 | NUR ---
CHEST PT DONE TO ANTERIOR CHEST. PEDRO. KOBE.
--- NOTE | 2019-08-26 20:43 | NUR ---
tylenol suppository given for temp of 102.4. will continue to monitor and reassess.
[2019-08-27] VITALS: BP 166/59
--- NOTE | 2019-08-27 | NUR ---
TYLENOL WAS INNEFFECTIVE. PATIENT TEMP IS CURRENTLY 103.0 RECTALLY. PATIENT PLACED ON COOLING BLANKET AT THIS TIME.
--- NOTE | 2019-08-27 00:20 | NUR ---
PATIENT BATHED AND LINENS CHANGED AT THIS TIME. PATIENT REPOSITIONED FOR COMFORT.
--- NOTE | 2019-08-27 03:35 | NUR ---
TYLENOL SUPPOSITORY GIVEN FOR ELEVATED TEMP OF 101.9. WILL CONTINUE TO MONITOR AND REASSESS.
[2019-08-27 04:00] VITALS: BP 131/49
[2019-08-27 05:31] LABS: ALBUMIN 3.7 gm/dl (3.1-4.5); ALKALINE PHOSPHATASE 78 U/L (45-117); BUN 29 mg/dl (7-24); CHLORIDE 100 mmol/L (98-107); CREATININE 0.58 mg/dL (0.55-1.02); POTASSIUM 3.9 mmol/L (3.5-5.1); SGOT/AST 21 IU/L (3-35); SGPT/ALT 39 U/L (12-78); SODIUM 137 mmol/L (136-145); TOTAL PROTEIN 6.4 gm/dL (6.4-8.2)
[2019-08-27 06:18] LABS: MEAN CELL VOLUME 98.4 fl (81.0-99.0); MEAN CORPUSCULAR HGB 31.1 pg (27.0-31.0); MEAN CORPUSCULAR HGB CONC 31.7 g/dl (33.0-37.0); MEAN PLATELET VOLUME 10.9 fl (9.6-12.3); NUCLEATED RED BLOOD CELL 0.2 % (0.0-0.0); PLATELET COUNT AUTOMATED 340 10*3/uL (130-400); RED BLOOD COUNT 2.44 10*6/uL (4.10-5.10); RED CELL DISTRI WIDTH 18.2 % (0-14.5); WHITE BLOOD COUNT 19.3 10*3/uL (4.8-10.8)
[2019-08-27 07:52] LABS: TOTAL CELLS COUNTED 100 #CELLS
[2019-08-27 07:53] LABS: PLATELET SUFFICIENCY NORMAL (NORMAL)
[2019-08-27 07:54] LABS: POLYCHROMASIA SLIGHT
[2019-08-27 08:00] VITALS: BP 140/44
--- NOTE | 2019-08-27 09:52 | NUR ---
DR ORNELAS IN TO SEE PT. NEW ORDERS RECEIVED.
--- NOTE | 2019-08-27 10:14 | NUR ---
PODIATRY RESIDENT HERE TO SEE PT. DSG'S TO LOWER LEGS CHANGED. PT TOLERATED PROCEDURE WELL.
--- NOTE | 2019-08-27 11:03 | NUR ---
[facility] IS NOW STATING PATIENT NEEDS A PRECERT TO RETURN. COOK APPRENTICE NOTIFIED RN HOSPITALIST COORDINATIOR
[2019-08-27 12:00] VITALS: BP 150/54
--- NOTE | 2019-08-27 12:20 | NUR ---
MEDICATED PT PER PRN ORDER WITH TYLENOL FOR RECTAL TEMP OF 101.5. WILL CONTINUE TO MONITOR PT.
--- NOTE | 2019-08-27 13:02 | NUR ---
MEDICATED PT PER PRN ORDER WITH MORPHINE FOR C/O BACK PAIN. PT UNABLE TO RATE PAIN ON A PAIN SCALE IS AT THIS TIME. WILL CONTINUE TO MONITOR PT.
--- NOTE | 2019-08-27 13:20 | NUR ---
PT RESTING BETTER. EARLIER MORPHINE EFFECTIVE.
--- NOTE | 2019-08-27 13:24 | NUR ---
DR RAMIREZ IN TO SEE PT.
--- NOTE | 2019-08-27 13:59 | NUR ---
PRECERT IS APPROVED PATIENT IS ABLE TO GO TO [facility] TODAY IF MEDICALLY STABLE. SOLAR SYSTEMS DESIGNER NOTIFIED RN HOSPITALIST COORDINATOR
--- NOTE | 2019-08-27 15:51 | NUR ---
UPDATED DR OLIVEIRA ON PT'S RECTAL TEMP 102. NEW ORDERS RECEIVIED.
[2019-08-27 16:00] VITALS: BP 132/50
--- NOTE | 2019-08-27 16:38 | NUR ---
TORADOL GIVEN PER ONE TIME ORDER PER DR OLIVER.
--- NOTE | 2019-08-27 16:53 | NUR ---
MEDICATED PT PER PRN ORDER WITH TYLENOL FOR PT'S TEMP OF 102 RECTAL.
--- NOTE | 2019-08-27 17:21 | NUR ---
PT REPORT CALLED TO KATIE,RECEIVING NURSE AT [facility]. INFORMED HER OF THE DELAY IN TRANSFER UNTIL 6:30.
--- NOTE | 2019-08-27 18:20 | NUR ---
PT'S TEMP 101.2 RECTAL. TYLENOL SOMEWHAT EFFECTIVE. DISCHARGE WOUND PHOTOS TAKEN AND WOUNDS REDRESSED.
--- NOTE | 2019-08-27 19:27 | NUR ---
PT DISCHARGED TO [facility] VIA [facility].
== END 2019-08-27 19:27 | disposition other institution (70) | DRG 870 ==
LOC: ED 00:13 → 4NE 05:28 → ICCU 05:28 → EDHOLD 05:28 → 4NE 06:17 → ICCU 08-24 15:13
PROVIDERS: Emergency Medicine Emergency Medical Services; Family Medicine; Hospitalist; Internal Medicine; Internal Medicine Critical Care Medicine; ADMIT Internal Medicine
PROC: 30233N1 Transfusion of Nonautologous Red Blood Cells into Peripheral Vein, Percutaneous Approach (ICD-10-PCS; principal; 2019-08-22)
PROC: 5A1955Z Respiratory Ventilation, Greater than 96 Consecutive Hours (ICD-10-PCS; principal; 2019-08-22)
DX: A41.9 Sepsis, unspecified organism (principal); J18.9 Pneumonia, unspecified organism; E43 Unspecified severe protein-calorie malnutrition; J96.21 Acute and chronic respiratory failure with hypoxia; J96.22 Acute and chronic respiratory failure with hypercapnia; G06.2 Extradural and subdural abscess, unspecified; G82.50 Quadriplegia, unspecified; K92.2 Gastrointestinal hemorrhage, unspecified; E87.3 Alkalosis; R65.20 Severe sepsis without septic shock; E11.65 Type 2 diabetes mellitus with hyperglycemia; E03.9 Hypothyroidism, unspecified; I25.10 Atherosclerotic heart disease of native coronary artery without angina pectoris; E78.5 Hyperlipidemia, unspecified; K21.9 Gastro-esophageal reflux disease without esophagitis; I10 Essential (primary) hypertension; F32.9 Major depressive disorder, single episode, unspecified; D50.0 Iron deficiency anemia secondary to blood loss (chronic); R79.89 Other specified abnormal findings of blood chemistry; E83.41 Hypermagnesemia; E87.5 Hyperkalemia; I95.9 Hypotension, unspecified; L89.309 Pressure ulcer of unspecified buttock, unspecified stage; L89.159 Pressure ulcer of sacral region, unspecified stage; S81.802A Unspecified open wound, left lower leg, initial encounter; S81.801A Unspecified open wound, right lower leg, initial encounter; X58.XXXA Exposure to other specified factors, initial encounter; Y93.89 Activity, other specified; Y92.89 Other specified places as the place of occurrence of the external cause; Y99.8 Other external cause status; Z66 Do not resuscitate; Z51.5 Encounter for palliative care; Z20.828 Contact with and (suspected) exposure to other viral communicable diseases; Z68.32 Body mass index [BMI] 32.0-32.9, adult; Z93.0 Tracheostomy status; Z93.1 Gastrostomy status; I25.2 Old myocardial infarction; Z79.4 Long term (current) use of insulin; Z79.01 Long term (current) use of anticoagulants; Z79.899 Other long term (current) drug therapy; Z88.6 Allergy status to analgesic agent; Z87.891 Personal history of nicotine dependence